=== PATIENT | female | born 1990 | race Caucasian/White ===

== ENCOUNTER → 2020-12-23 12:11 | Outpatient (CLI) | payer OTHER, SELFPAY ==
[2020-12-23 13:25] LABS: Add Manual Diff / Slide Review NO; Basophils Absolute Auto 0 /uL (0-100); Basophils Percent Auto 0.3 % (0-2); Eosinophils Absolute Auto 200 /uL (0-450); Hematocrit 38.6 % (36-46); Hemoglobin 12.9 g/dL (12.0-16.0); Lymphocytes Absolute Auto 1800 /uL (1100-4500); Lymphocytes Percent Auto 15.2 % (25-40); Mean Corpuscular HGB Conc 33.5 % (30-36); Mean Corpuscular Hemoglobin 29.8 PG (26-34); Monocytes Absolute Auto 500 /uL (0-900); Monocytes Percent Auto 4.4 % (3-14); Neutrophils Absolute Auto 9500 /uL (1500-7000); Neutrophils Percent Auto 78.1 % (50-75); Platelet Count 191 X10^3/uL (150-400); Red Blood Cell Count 4.34 X10^6/uL (4.0-5.2); Red Cell Distribution Width 12.5 % (11.6-14.8); White Blood Cell Count 12.1 X10^3/uL (4.5-11.0)
[2020-12-23 16:39] LABS: Hepatitis B Surface Antigen NEGATIVE s/c (NEGATIVE)
[2020-12-23 16:53] LABS: HIV 1 & 2 Ab/Ag 4th Gen Combo NEGATIVE (NEGATIVE); Hep C Virus Ab w/Reflex Quant NEGATIVE s/c (NEGATIVE)
[2020-12-23 16:54] LABS: Urine N gonorrhoeae NOT DETECTED
[2020-12-23 17:19] LABS: Urine Chlamydia NOT DETECTED
[2020-12-24 06:41] LABS: Varicella IgG Antibody 2003 index (Immune >165)
[2020-12-24 08:28] LABS: RPR Screen Non Reactive (Non Reactive)
[2020-12-27 12:45] LABS: TSH w/ Reflex to FT4 1.62 uIU/mL (0.47-4.68)
[2020-12-28 17:24] LABS: Rubella Antibody IgG 94.9 IU/mL (>15)
== END ==
PROVIDERS: PCP Registered Nurse Diabetes Educator; Referring Provider Family Medicine; Visit Provider Family Medicine
DX: Z34.81 Encounter for supervision of other normal pregnancy, first trimester (principal)
CPT/HCPCS: 36415; 80055; 84443; 86787; 86803; 86850; 86900; 86901; 87077; 87086; 87186; 87389; 87491; 87591

== ENCOUNTER → 2021-02-16 15:35 | Outpatient (CLI) | payer OTHER, SELFPAY ==
--- NOTE | 2021-02-16 15:36 | DI.US.S_ITS ---
PROCEDURE: US OB >= 14 WEEKS FETUS INDICATIONS: anatomy screening OUTSIDE/PRIOR DATING DATA: Last menstrual period (LMP): 09/23/2020. LMP-based estimated date of delivery (JOHN): 06/30/2021. First dating scan (date and location): 11/22/2020 [facility]. Estimated date of delivery (JOHN) from first dating scan: 07/02/2021. TECHNIQUE: Real-time scanning was performed of the fetus, with image documentation and biometric measurements. Endovaginal scanning: Not performed COMPARISON: 11/22/2020. FINDINGS: General: A single living intrauterine gestation is present. Presentation: Breech. Placenta: Placental position is anterior, without previa. Amniotic fluid index: 13.4 cm, normal range is 5-24 cm. heart rate: 145 beats per minute. Maternal cervical canal: 5.8 cm long. Normal lower limit is 2.5 cm. biometrics: Biparietal diameter: 5.1 cm, 21 weeks 3 days Head circumference: 19.2 cm, 21 weeks 3 days Abdominal circumference: 15.8 cm, 20 weeks 6 days Femur length: 3.6 cm, 21 weeks 2 days Estimated gestational age from initial scan: 20 weeks 4 days Composite gestational age from present scan: 20 weeks 6 days Estimated weight and percentile: 401 g, 68th percentile Measurement variability for biometric dating: +/- 7 days from 14 weeks to 15 weeks 6 days gestation, +/- 10 days from 16 weeks to 21 weeks 6 days gestation, +/- 2 weeks from 22 weeks to 27 weeks 6 days gestation, +/- 3 weeks for 28 weeks gestation or later. weight reference: 4500 g or EFW >90/95% is considered macrosomia or large for gestational age. EFW <10% is small for gestational age. EFW 5% or less is considered intra-uterine growth restriction. Anatomic survey: Neuro: Ventricles are non-dilated at less than 10 mm. Cisterna magna is normal at 3-11 mm. Cerebellum is normal in size and morphology. Nuchal skin fold: Normal at less than 6 mm between 14-21 weeks gestational age. Face: Nose and lips, facial profile are normal. Spine: No evidence for spina bifida. Heart: 4-chambered heart is present, with normal ventricular outflow tracts. Diaphragm: Diaphragm is intact. Stomach: Left-sided stomach is present. Kidneys: No hydronephrosis. Normal is less than 5 mm in 2nd trimester, less than 7 mm in 3rd trimester. Cord: 3-vessel cord has orthotopic insertion. Bladder: Normal in size. Extremities: All 4 extremities identified. IMPRESSION: 1. Gilliam living intrauterine at 20 weeks 6 days based on today's ultrasound. This is concordant with the prior ultrasound. There is expected interval growth. 2. Normal placenta and amniotic fluid. 3. Normal and complete anatomic survey. Dictated by: Frank Groves M.D. on 02/17/2021 at 10:37 Approved by: Frank Groves M.D. on 02/17/2021 at 10:42
== END ==
PROVIDERS: PCP Registered Nurse Diabetes Educator; Referring Provider Family Medicine; Visit Provider Family Medicine
DX: Z34.90 Encounter for supervision of normal pregnancy, unspecified, unspecified trimester (principal); Z3A.20 20 weeks gestation of pregnancy
CPT/HCPCS: 76811

== ENCOUNTER → 2021-03-30 14:48 | Outpatient (CLI) | payer OTHER, SELFPAY ==
[2021-03-30 16:31] LABS: Hematocrit 36.2 % (36-46)
[2021-03-30 19:49] LABS: GTT (PREG) 1 Hour PP 50gm Dose 93 mg/dL (76-139)
[2021-03-30 20:17] LABS: TSH w/ Reflex to FT4 2.18 uIU/mL (0.47-4.68)
== END ==
PROVIDERS: PCP Registered Nurse Diabetes Educator; Referring Provider Family Medicine; Visit Provider Family Medicine
DX: Z34.90 Encounter for supervision of normal pregnancy, unspecified, unspecified trimester (principal)
CPT/HCPCS: 36415; 82950; 84443; 85014; 85018

== ENCOUNTER 2021-06-23 06:39 | Inpatient (IN) | payer OTHER, SELFPAY ==
[2021-06-23] VITALS (7 sets, daily range): BP systolic 96–113; BP diastolic 41–64; PULSE 63–82; RESP 12–16; TEMP 36.1–36.7; O2SAT 95–97
--- NOTE | 2021-06-23 07:20 | SUR.OPER ---
Supine on Padded OR bed, head on pillow, safety belt at thigh, arms secured on padded arm boards at <90 degrees abduction. Bump under right buttock. Legs uncrossed with pillow under knees, gel pad to heels, tape over blanket to lower legs.
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
[2021-06-23 07:55] LABS: Add Manual Diff / Slide Review NO; Basophils Absolute Auto 0 /uL (0-100); Basophils Percent Auto 0.4 % (0-2); Eosinophils Absolute Auto 200 /uL (0-450); Eosinophils Percent Auto 1.2 % (2-4); Hemoglobin 12.5 g/dL (12.0-16.0); Lymphocytes Absolute Auto 2400 /uL (1100-4500); Lymphocytes Percent Auto 19.8 % (25-40); Mean Corpuscular HGB Conc 32.8 % (30-36); Mean Corpuscular Hemoglobin 29.2 PG (26-34); Mean Corpuscular Volume 89.2 fL (80-100); Monocytes Absolute Auto 700 /uL (0-900); Neutrophils Absolute Auto 8800 /uL (1500-7000); Neutrophils Percent Auto 72.6 % (50-75); Platelet Count 122 X10^3/uL (150-400); Red Blood Cell Count 4.26 X10^6/uL (4.0-5.2); Red Cell Distribution Width 13.1 % (11.6-14.8); White Blood Cell Count 12.1 X10^3/uL (4.5-11.0)
[2021-06-23 08:41] LABS: COVID19 - ADMIT (NP swab/PCR) Negative (Negative)
[2021-06-23] MEDS: CEFAZOLIN 1 GM VIAL 2 GM IV (09:10)
--- NOTE | 2021-06-23 09:32 | SUR.OPER ---
VIABLE MALE INFANT DELIVERED AT 0921. PLACENTA AND CORD BLOOD TO OB WITH RN.
[2021-06-23] MEDS: LACTATED RINGERS 1,000 ML 100 ML IV (09:50)
--- NOTE | 2021-06-23 10:09 | PM.PROC.1 ---
Procedures Date/Time Date of procedure: 06/23/21 Time of procedure: 10:09 General Procedure description: Procedure: Lower segment transverse section Consent: Verbal and written informed consent were obtained from the patient placed on the chart. Indications: 31-year-old G3 para 239 weeks gestational age for repeat Findings: [Normal uterus normal ovaries] Normal male infant Anesthesia: [Spinal] Surgeon: [Dr. Alejo Padilla] Practical Nursing Teacher: Dr. Bernadette Traore Estimated blood loss: [500 mL] Drains: Sanford to gravity. IV fluids: 2 L LR Description of procedure: The patient was brought to the operating room after her spinal epidural, preparation, and Sanford had been performed. The abdomen was prepped and draped in tested for for analgesia. When it was found to be adequate, a lower abdominal Pfannenstiel incision was made with first with a knife and cared down to the fascia with a second knife. The fascia was incised in the midline and extended laterally with a knife. Bleeding points were clamped with hemostats and Bovie coagulated. The rectus muscles were by blunt dissection. The rectus muscles were divided in the midline and the peritoneum was grasped with hemostats and carefully entered with Petersen scissors. The incision was extended bilaterally. The bladder blade was then placed. The vesicoperitoneum was grasped with smooth pickups, entered with Metzenbaum scissors, and extended laterally. The bladder flap was created by gently blunt dissection and placed behind the bladder blade. The lower uterine segment was noted to be thin was carefully incised with the scalpel and extended laterally with the fingers. A live infant was found to be in the vertex. The head was then easily elevated with the hand. The baby was then suctioned and cried immediately, and was handed to the waiting attendant. The placenta was delivered manually. The uterus was explored with a wet lap sponge and found to be clear membranes. The first layer of the uterine closure was with running locking #1 chromic catgut suture. The second layer with an imbricating #1 chromic catgut suture. Hemostasis was carefully checked and found to be satisfactory. The bladder flap was closed with a running 2-0 chromic catgut suture. The fallopian tubes and ovaries were inspected and to be found normal bilaterally. After sponge and needle counts were found to be correct the peritoneum was closed with 2-0 chromic catgut suture. Rectus muscles were approximated in the lower midline. The fascia was closed with a 2 running 0 Vicryl from lateral to midline. The subcutaneous tissue was approximated with interrupted 2.0 plain gut. Bleeding points were Bovie and coagulated. The subcutaneous tissue was approximated with 20 plain gut suture. The skin was closed with 1-0 running subcuticular stitch. Urinary output was adequate and normal patient left to the recovery room in good condition.
[2021-06-23] MEDS: ACETAMINOPHEN 325 MG TABLET 650 MG PO (12:28)
[2021-06-23] MEDS: LANOLIN OINT 7 GM 1 APPLIC TOP (12:29)
[2021-06-23] MEDS: KETOROLAC 30 MG/ML VIAL IV ×2 (12:37→19:05)
[2021-06-24] MEDS: KETOROLAC 30 MG/ML VIAL IV ×2 (00:54→06:45)
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
[2021-06-24 08:47] LABS: Add Manual Diff / Slide Review NO; Basophils Absolute Auto 0 /uL (0-100); Basophils Percent Auto 0.2 % (0-2); Eosinophils Absolute Auto 100 /uL (0-450); Eosinophils Percent Auto 0.5 % (2-4); Hematocrit 32.4 % (36-46); Hemoglobin 10.8 g/dL (12.0-16.0); Lymphocytes Absolute Auto 1700 /uL (1100-4500); Lymphocytes Percent Auto 13.1 % (25-40); Mean Corpuscular HGB Conc 33.3 % (30-36); Mean Corpuscular Hemoglobin 29.7 PG (26-34); Mean Corpuscular Volume 89.3 fL (80-100); Monocytes Absolute Auto 800 /uL (0-900); Monocytes Percent Auto 6.5 % (3-14); Neutrophils Absolute Auto 10400 /uL (1500-7000); Neutrophils Percent Auto 79.7 % (50-75); Platelet Count 127 X10^3/uL (150-400); Red Blood Cell Count 3.63 X10^6/uL (4.0-5.2); Red Cell Distribution Width 13.3 % (11.6-14.8)
[2021-06-24] MEDS: IBUPROFEN 600 MG TABLET PO ×2 (12:52→18:36)
[2021-06-24] MEDS: DOCUSATE 100 MG CAPSULE 200 MG PO (12:52)
[2021-06-24] MEDS: ACETAMINOPHEN 325 MG TABLET 650 MG PO ×2 (12:52→18:35)
[2021-06-25] MEDS: IBUPROFEN 600 MG TABLET PO ×2 (03:39→09:20)
[2021-06-25] MEDS: ACETAMINOPHEN 325 MG TABLET 650 MG PO ×2 (03:39→09:17)
--- NOTE | 2021-06-25 07:13 | P.DS_ITS ---
Discharge Providers Provider Date of admission: 06/23/21 06:39 Discharge Date: 06/25/21 Primary care physician: JIHAN Wright Consults: 06/23/21 10:41 Consult to Outside Sales Account Representative Routine Comment: Discharge provider: Alejo Padilla MD Summary Hospital Course Date Patient Seen: 06/25/21 Time Patient Seen: 07:13 Diagnoses: Delivery of viable male by repeat section Peripartum Data Delivery Method: Section complications: none Discharge Diagnosis (1) : Status: Acute Status at Discharge Cognitive/behavioral status at discharge: oriented Functional status at discharge: independent ambulation Overall status at discharge: patient is back to baseline Time Spent with Patient Time attestation: Total time spent providing and/or coordinating discharge services: Objective Labs Result Diagrams: 06/24/21 07:55 Labs: Laboratory Results - last 24 hr 06/24/21 07:55 WBC 13.0 H RBC 3.63 L Hgb 10.8 L Hct 32.4 L MCV 89.3 MCH 29.7 MCHC 33.3 RDW 13.3 Plt Count 127 L Neut % (Auto) 79.7 H Lymph % (Auto) 13.1 L [place] % (Auto) 6.5 Eos % (Auto) 0.5 L Baso % (Auto) 0.2 Neut # (Auto) 72881 H Lymph # (Auto) 1700 [place] # (Auto) 800 Eos # (Auto) 100 Baso # (Auto) 0 Exam Vital Signs (past 8 hours): Oxygen Delivery Method Room Air Narrative Exam Narrative: General: Alert no apparent distress. Affect is appropriate. Giselle it is uncomfortable. HEENT: Neck is supple without lymphadenopathy pupils equal round and reactive. Cardio: S1-S2 regular rate and rhythm. Respiratory: Lungs clear to auscultation. Abdomen: Uterus firm. Incision clean dry and intact. Extremities: Normal deep tendon reflexes trace edema. Discharge Plan Discharge Plan Patient Disposition: Home Discharge orders & Medications Prescriptions: New hydrocodone-acetaminophen 5-325 mg Tablet 2 tab PO Q6HR PRN (Reason: pain) Qty: 30 RF: 0 docusate sodium 100 mg Capsule 200 mg PO DAILY Qty: 30 RF: 0 ibuprofen 600 mg Tablet 600 mg PO Q6H PRN (Reason: Fever/Mild Pain (1-3)) Qty: 30 RF: 0 Continued prenat.vits,evy,[id number] Tablet 1 tab PO DAILY RF: 0 epinephrine [EpiPen 2-Florentino] 0.3 mg/0.3 mL auto-injector 0.3 mg IM Q5-15M PRN (Reason: Allergic Symptoms) RF: 0 Follow up/Referrals: Alejo Padilla MD [Physician] - (Your follow up appointment is scheduled with Dr. Padilla on June 30@3:15pm for dressing removal, incision check, and overall wellness check.) Magdaleno Dave ARNP [Primary Care Provider] - Visit Report/Discharge Packet Stand Alone Forms: Discharge: Care Visit Report Forms: Patient Portal/API, Stroke Signs & Symptoms Discharge Data Primary Care Provider: Magdaleno Dave
[2021-06-25 07:25] VITALS: BP 96/48; PULSE 63; RESP 16; TEMP 36.5
[2021-06-25] MEDS: DOCUSATE 100 MG CAPSULE 200 MG PO (09:17)
== END 2021-06-25 10:35 | disposition home or self-care (01) | DRG 788 ==
PROVIDERS: Admitting Provider Family Medicine; PCP Registered Nurse Diabetes Educator; Referring Provider Family Medicine; Visit Provider Family Medicine
PROC: 10D00Z1 Extraction of Products of Conception, Low, Open Approach (ICD-10-PCS; CPT 59514; principal; 2021-06-23 07:45)
DX: O34.219 Maternal care for unspecified type scar from previous cesarean delivery (principal); Z3A.39 39 weeks gestation of pregnancy; Z37.0 Single live birth
CPT/HCPCS: 36415; 59025; 59050; 59510; 59514; 85025; 86850; 86900; 86901; 87635; C9803; J0690; J1885; J2274; J2590